=== PATIENT | male | born 1965 | race Caucasian/White ===

== ENCOUNTER 2017-04-04 23:02 | Emergency (ER) | payer SELFPAY ==
[~2017-04-04] VITALS: Ht 175.3 cm; Wt 77.1 kg
[2017-04-04 23:30] VITALS: BP 182/115
[2017-04-04 23:42] VITALS: BP 152/75
--- NOTE | 2017-04-04 23:43 | Emergency Room Report ---
History of Present Illness General Chief Complaint: Dyspnea/Respdistress Source: Patient Present Illness HPI Is a 52-year-old male with a history of high blood pressure and CHF. He presents with chief complaint of shortness of breath. He walked in. He is homeless. He was just at [facility] recently. He has an armband dated for the . He said that they did not do anything for him. He said that he was bit it for a week. He said they did not give him any medicine he was discharged. Patient said that he still has soreness of breath. He still has swelling to his right leg. This is unchanged from before. He said they ran a bunch of tests and nothing came out. Patient wanted something new. Allergies: Coded Allergies: KETOROLAC (Verified Allergy, Unknown, 04/04/17) LORAZEPAM (Verified Allergy, Unknown, 04/04/17) TRAMADOL (Verified Allergy, Unknown, 04/04/17) Patient History Past Medical History: see triage record, old chart reviewed Past Surgical History: other Pertinent Family History: none Social History: Reports: smoking Immunizations: other Reviewed Nursing Documentation: PMH: Agreed, PSxH: Agreed Nursing Documentation-PMH Hx Hypertension: Yes Hx Diabetes: Yes Review of Systems Eye: Denies: eye pain, blurred vision ENT: Denies: ear pain, nose congestion, throat swelling Respiratory: Reports: shortness of breath, Denies: cough Cardiovascular: Denies: chest pain, palpitations Gastrointestinal: Denies: abdominal pain, diarrhea, nausea, vomiting Musculoskeletal: Denies: back pain, joint pain Skin: Denies: rash Neurological: Denies: headache, numbness Endocrine: Denies: increased thirst, increased urine Hematologic/Lymphatic: Denies: easy bruising All Other Systems: negative except mentioned in HPI Physical Exam Vital Signs Date Time Temp Pulse Resp B/P (MAP) Pulse Ox O2 Delivery O2 Flow Rate FiO2 04/04/17 23:08 97.3 87 20 182/115 97 Room Air 97.3 vitals with high blood pressure Sp02 EP Interpretation: reviewed, normal General Appearance: well appearing, no apparent distress, alert Head: normocephalic, atraumatic Eyes: right eye other - He is blind in the right eye, bilateral eye EOMI ENT: hearing grossly normal, normal pharynx Neck: full range of motion, supple, no meningismus Respiratory: chest non-tender, lungs clear, normal breath sounds Cardiovascular #1: regular rate, rhythm, no murmur Gastrointestinal: normal bowel sounds, non tender, no mass, no organomegaly, no bruit, non-distended Musculoskeletal: back normal, gait/station normal, normal range of motion, other - Chronic right lymphedema Neurologic: alert, oriented x3 Psychiatric: mood/affect normal Skin: warm/dry Medical Decision Making Diagnostic Impression: Primary Impression: Dyspnea Qualified Codes: R06.00 - Dyspnea, unspecified Additional Impression: Hypertension Qualified Codes: I10 - Essential (primary) hypertension ER Course Patient presents with high blood pressure and dyspnea. He may have CHF, cor pulmonale, diastolic dysfunction, Cardiomyopathy to name a few. He said at [facility] denied urinating for him. I explained to him that he was For a week and had blood work done and tests were done. On discharge he probably got prescription for medications and referred to a care home. Patient said that he does not do care home. He wanted something here to fix his problem. He does not want blood work or x-rays done. Explained to him that this is a first-time am seeing him and i need bloodwork and diagnostic study to see what is wrong with him. Sprain to him that he probably has a chronic issue, worsened by his noncompliance with medication. Patient said that he does not want to stay and wanted to leave because I insist on doing blood work and x-rays. He is competent to make that decision to leave AGAINST MEDICAL ADVICE. Explained to him that he may have a severe condition like a heart attack or fluid overloaded and may . Patient said he doesn't care he wants to leave AGAINST MEDICAL ADVICE. on exam, his lungs are clear and his oxygenation is 100% on room air. EKG showed no ST elevation. EKG Diagnostic Results Rate: normal Rhythm: NSR ST Segments: no acute changes ASA given to the pt in ED: No - Patient refused Last Vital Signs Date Time Temp Pulse Resp B/P (MAP) Pulse Ox O2 Delivery O2 Flow Rate FiO2 04/04/17 23:08 97.3 87 20 182/115 97 Room Air 97.3 Status: unchanged Disposition: AGAINST MEDICAL ADVICE Condition: Stable MACK BATES M.D. Apr 04, 2017 23:43
[2017-04-04 23:49] VITALS: BP 152/75
--- NOTE | 2017-04-06 16:25 | Cardiology Report ---
APPROVED REPORT EKG Measurement Heart [id number] Sinus rhythm with 1st degree AV block Otherwise normal ECG
== END 2017-04-04 23:49 | disposition left against medical advice (07) ==
LOC: EMR 23:25
DX: R06.00 Dyspnea, unspecified (principal); I10 Essential (primary) hypertension; E11.9 Type 2 diabetes mellitus without complications; I89.0 Lymphedema, not elsewhere classified; Z88.6 Allergy status to analgesic agent; Z88.8 Allergy status to other drugs, medicaments and biological substances
CPT/HCPCS: 93005; 99283